=== PATIENT | female | born 2000 | race Two or more races ===

== ENCOUNTER 2021-02-25 12:02 | Emergency (ER) | payer OTHER ==
[2021-02-25 12:08] VITALS: BP 118/76; PULSE 116; TEMP 97.5; BMI 30.1
[2021-02-25] MEDS ORDERED: FAMOTIDINE 20 MG/50 ML IVPB 20 MG/50 ML MG IVPB ONE ×2 (13:11→13:38)
[2021-02-25] MEDS ORDERED: SODIUM CHLORIDE 1,000 ML IV STA ×3 (13:11→16:19)
[2021-02-25] MEDS ORDERED: ONDANSETRON *ODT* 4 MG TABLET SL ONE (13:11)
[2021-02-25] MEDS ORDERED: ONDANSETRON *ODT* 4 MG TABLET ONE (13:38)
[2021-02-25 13:50] LABS: BASO % 0.5 % (0-2.0); EOS % 0.8 % (0-4.5); HEMATOCRIT 39.5 % (32.4-45.2); HEMOGLOBIN 13.6 GM/dL (10.7-15.3); LYMPH % 20.3 % (8-40); MCH 27.6 pg (25.7-33.7); MCHC 34.5 g/dl (32.0-36.0); MEAN CELL VOLUME 80.1 fl (80-96); MEAN PLT VOLUME 8.5 fl (7.5-11.1); MONO % 5.8 % (3.8-10.2); NEUT % 72.6 % (42.8-82.8); PLATELET COUNT 331 10^3/uL (134-434); RBC 4.93 M/mm3 (3.60-5.2); RDW 15.9 % (11.6-15.6); WHITE BLOOD COUNT 18.1 K/mm3 (4.0-10.0)
[2021-02-25 14:17] LABS: ALBUMIN 4.4 g/dl (3.4-5.0); BLOOD UREA NITROGEN 7.7 mg/dL (7-18)
[2021-02-25 14:20] LABS: CREATININE 0.6 mg/dL (0.55-1.3)
[2021-02-25 14:22] LABS: BILIRUBIN,TOTAL 0.9 mg/dL (0.2-1); TOT PROT 8.6 g/dl (6.4-8.2)
[2021-02-25 17:26] LABS: EPI CELLS >36 /uL (0-25.1); HYALINE CASTS 14 /uL (0-3.1); URINE APPEARANCE CLOUDY; URINE BACTERIA 5283 /uL (0-1359); URINE BILIRUBIN 1+ (NEGATIVE); URINE COLOR DK YELLOW; URINE GLUCOSE (UA) NEGATIVE (NEGATIVE); URINE KETONE 4+ (NEGATIVE); URINE LEUK ESTERASE 2+ (NEGATIVE); URINE NITRITE NEGATIVE (NEGATIVE); URINE PROTEIN 2+ (NEGATIVE); URINE RBC 14 /uL (0-23.9); URINE WBC 179 /uL (0-25.8)
[2021-02-25] MEDS ORDERED: DEXTROSE 5%-NORMAL SALINE 1,000 ML IV ONE (17:43)
== END 2021-02-25 19:15 | disposition home or self-care (01) ==
LOC: JER 12:02
PROC: 3E033GC Introduction of Other Therapeutic Substance into Peripheral Vein, Percutaneous Approach (ICD-10-PCS; principal; 2021-02-25)
PROC: 3E033GC Introduction of Other Therapeutic Substance into Peripheral Vein, Percutaneous Approach (ICD-10-PCS; 2021-02-25)
PROC: 3E0337Z Introduction of Electrolytic and Water Balance Substance into Peripheral Vein, Percutaneous Approach (ICD-10-PCS; 2021-02-25)
PROC: 3E0337Z Introduction of Electrolytic and Water Balance Substance into Peripheral Vein, Percutaneous Approach (ICD-10-PCS; 2021-02-25)
DX: O21.0 Mild hyperemesis gravidarum (principal); Z3A.01 Less than 8 weeks gestation of pregnancy
CPT/HCPCS: 36415; 80053; 81003; 84702; 85025; 87086; 99284-25; Q0162

== ENCOUNTER 2021-10-05 18:40 | Inpatient (IN) | payer OTHER ==
[2021-10-05] MEDS ORDERED: DEXTROSE 5%-LACTATED RINGERS 1,000 ML IV SCH ×2 (20:55)
[2021-10-05] MEDS ORDERED: AMPICILLIN SODIUM 2 GM VIAL IVPB ONE (21:00)
[2021-10-05] MEDS ORDERED: AMPICILLIN SODIUM 2 GM VIAL ONE (21:13)
[2021-10-05 21:29] VITALS: BMI 33.8
[2021-10-05 21:47] LABS: BASO % 0.3 % (0-2.0); EOS % 3.7 % (0-4.5); HEMATOCRIT 28.1 % (32.4-45.2); HEMOGLOBIN 9.1 GM/dL (10.7-15.3); LYMPH % 27.7 % (8-40); MCH 23.1 pg (25.7-33.7); MCHC 32.3 g/dl (32.0-36.0); MEAN CELL VOLUME 71.5 fl (80-96); MEAN PLT VOLUME 9.1 fl (7.5-11.1); MONO % 6.9 % (3.8-10.2); NEUT % 61.4 % (42.8-82.8); PLATELET COUNT 248 10^3/uL (134-434); RBC 3.93 M/mm3 (3.60-5.2); RDW 16.2 % (11.6-15.6); WHITE BLOOD COUNT 8.2 K/mm3 (4.0-10.0)
[2021-10-05 21:53] LABS: INR 0.91 (0.83-1.09); PROTHROMBIN TIME (PATIENT) 10.5 SEC (9.7-13.0)
[2021-10-05 21:56] LABS: ACTIVATED PTT 32.1 SECONDS (25.2-36.5)
[2021-10-05 22:02] LABS: CALCIUM 8.4 mg/dL (8.5-10.1)
[2021-10-05 22:03] LABS: ALBUMIN 2.5 g/dl (3.4-5.0); BLOOD UREA NITROGEN 6.1 mg/dL (7-18)
[2021-10-05 22:06] LABS: CREATININE 0.6 mg/dL (0.55-1.3)
[2021-10-05 22:07] LABS: TOT PROT 6.2 g/dl (6.4-8.2)
[2021-10-05 22:16] LABS: BILIRUBIN,TOTAL 0.6 mg/dL (0.2-1)
[2021-10-05 22:28] LABS: HEPATITIS B SURFACE AG MATERN NON-REACTIVE (NONREACTIVE); SYPHILIS W/ RPR CONF NON-REACTIVE (NONREACTIVE)
[2021-10-05 22:57] LABS: HIV INTERPRETATION NEGATIVE (NEGATIVE)
[2021-10-05] MEDS ORDERED: PROMETHAZINE HCL 25 MG/1 ML VIAL IVPUSH ONE (23:10)
[2021-10-05] MEDS ORDERED: BUTORPHANOL TARTRATE 1 MG/ML VIAL IVPB ONE (23:10)
[2021-10-05] MEDS ORDERED: SODIUM PHOSPHATE/NA BIPHOS 133 ML ENEMA RC ONE (23:12)
[2021-10-05] MEDS ORDERED: DINOPROSTONE 10 MG VAGINAL SUPPOSITORY VG ONE (23:13)
[2021-10-05] MEDS ORDERED: CITRIC ACID/SODIUM CITRATE 30 ML UNIT-DOSE CUP PO ONE (23:45)
[2021-10-05 23:47] LABS: METHADONE, UR NEGATIVE (NEGATIVE); OPIATES, URI NEGATIVE (NEGATIVE); PHENCYCLIDINE,URINE NEGATIVE (NEGATIVE); URINE BARBITURATES NEGATIVE (NEGATIVE); URINE BENZODIAZEPINES NEGATIVE (NEGATIVE)
[2021-10-05 23:48] LABS: URINE AMPHETAMINES NEGATIVE (NEGATIVE)
[2021-10-05 23:51] LABS: COCAINE, UR NEGATIVE (NEGATIVE)
[2021-10-06] MEDS ORDERED: AMPICILLIN SODIUM 1 GM VIAL ONE (01:08)
[2021-10-06] MEDS: AMPICILLIN - 1 GM in SODIUM CHLORIDE 100 ML IVPB SCH ×2 (01:10→13:40)
[2021-10-06] MEDS ORDERED: BUTORPHANOL TARTRATE 2 MG/ML VIAL ONE (01:52)
[2021-10-06] MEDS ORDERED: PROMETHAZINE HCL 25 MG/1 ML VIAL ONE (01:53)
[2021-10-06] MEDS ORDERED: OXYTOCIN 20 UNITS in 0.9% NS 20 UNIT/1,000 ML INFUS.BAG IV ONE ×2 (03:41→07:20)
[2021-10-06] MEDS ORDERED: LIDOCAINE HCL 1% PRESERVATIVE FREE - 30ML VIAL ONE (03:41)
[2021-10-06] MEDS: OXYTOCIN 20 UNITS in 0.9% NS 20 UNIT/1,000 ML INFUS.BAG IV SCH ×2 (04:05→07:30)
[2021-10-06 04:36] LABS: CORD BASE EXCESS -5.1 mmol/L (0-2); CORD HCO3 20.4 mmHg (20-29); CORD PCO2 39.8 mmHg (30-78); CORD pH 7.327 (7.14-7.44)
[2021-10-06 04:38] LABS: CORD BASE EXCESS -6.7 mmol/L (0-2); CORD HCO3 22.5 mmHg (20-29); CORD PCO2 58.8 mmHg (30-78); CORD pH 7.2 (7.14-7.44)
[2021-10-06] MEDS ORDERED: IBUPROFEN 600 MG TABLET (FP) PO ONE (04:39)
[2021-10-06] MEDS ORDERED: BENZOCAINE 20% 57 GM BOTTLE TP PRN (04:46)
[2021-10-06] MEDS ORDERED: oxyCODONE HCL 5 MG TABLET PO PRN (04:46)
[2021-10-06] MEDS ORDERED: BENZOCAINE 28 GM HEMORRHOIDAL OINTMENT TP PRN (04:46)
[2021-10-06] MEDS ORDERED: METHYLERGONOVINE MALEATE 0.2 MG/1 ML AMP IM PRN (04:46)
[2021-10-06] MEDS ORDERED: ACETAMINOPHEN 325 MG TABLET (FP) PO PRN (04:46)
[2021-10-06] MEDS ORDERED: BISACODYL 10 MG SUPP.RECT RC PRN (04:46)
[2021-10-06] MEDS ORDERED: WITCH HAZEL 50% (TUCKS) 40 PAD/JAR PAD TP PRN (04:46)
[2021-10-06] MEDS ORDERED: IBUPROFEN 600 MG TABLET (FP) PO PRN (04:46)
[2021-10-06] MEDS: FERROUS SO4 325 MG TABLET (FP) PO SCH ×2 (09:00→16:58)
[2021-10-06] MEDS: PRENATAL VITAMINS W/ FOLIC ACID TABLET (FP) PO SCH (09:50)
[2021-10-07 02:34] VITALS: PULSE 67
[2021-10-07 08:54] LABS: HEMATOCRIT 21.8 % (32.4-45.2); MCH 23.2 pg (25.7-33.7); MCHC 32.3 g/dl (32.0-36.0); MEAN PLT VOLUME 8.9 fl (7.5-11.1); PLATELET COUNT 213 10^3/uL (134-434); RBC 3.02 M/mm3 (3.60-5.2); WHITE BLOOD COUNT 10.4 K/mm3 (4.0-10.0)
[2021-10-07] MEDS: FERROUS SO4 325 MG TABLET (FP) PO SCH (09:00)
[2021-10-07] MEDS: PRENATAL VITAMINS W/ FOLIC ACID TABLET (FP) PO SCH (09:43)
[2021-10-07 10:11] VITALS: BP 114/70; TEMP 97.2
[2021-10-07 10:31] LABS: ANISOCYTOSIS 2+; MACROCYTOSIS 0
[2021-10-07] MEDS ORDERED: SENNOSIDES/DOCUSATE COMBO (SENNA PLUS) TABLET (UD) PO PRN (22:00)
[2021-10-09 11:11] LABS: POC NITRAZINE POS
== END 2021-10-07 15:15 | disposition home or self-care (01) | DRG 560 ==
LOC: JDEL 18:40 → JLDR 20:25 → J3W 10-06 07:34
PROVIDERS: ADMIT Obstetrics & Gynecology; ATTEND Obstetrics & Gynecology
PROC: 3E0P7VZ Introduction of Hormone into Female Reproductive, Via Natural or Artificial Opening (ICD-10-PCS; 2021-10-05)
PROC: 10E0XZZ Delivery of Products of Conception, External Approach (ICD-10-PCS; principal; 2021-10-06)
PROC: 0W8NXZZ Division of Female Perineum, External Approach (ICD-10-PCS; 2021-10-06)
PROC: 0KQM0ZZ Repair Perineum Muscle, Open Approach (ICD-10-PCS; 2021-10-06)
DX: O42.02 Full-term premature rupture of membranes, onset of labor within 24 hours of rupture (principal); O98.513 Other viral diseases complicating pregnancy, third trimester; U07.1 COVID-19; O99.824 Streptococcus B carrier state complicating childbirth; B95.1 Streptococcus, group B, as the cause of diseases classified elsewhere; O99.214 Obesity complicating childbirth; E66.9 Obesity, unspecified; O99.02 Anemia complicating childbirth; Z3A.38 38 weeks gestation of pregnancy; Z37.0 Single live birth
CPT/HCPCS: 36415; 36600; 59025; 59409; 80053; 80307; 82803; 83986-QW; 85025; 85610; 85730; 86762; 86780; 86850; 86900; 86901; 87340; 87389; C9803-CS; U0003; U0005